=== PATIENT | male | born 1945 | race Caucasian/White ===

== ENCOUNTER 2017-04-01 06:59 | Inpatient (IN) | payer OTHER ==
[2017-03-31 19:00] VITALS: BP 146/70; PULSE 69; TEMP 97.4; O2SAT 93
[~2017-04-01] VITALS: Ht 177.8 cm; Wt 103.0 kg
[2017-04-01] VITALS (11 sets, daily range): BP systolic 117–146; BP diastolic 58–70; PULSE 60–73; RESP 17; TEMP 97.4–98.4; O2SAT 93–96
[2017-04-01] MEDS ORDERED: HEPARIN-NS/PF INJ 500 ML ONE (07:12)
[2017-04-01] MEDS ORDERED: ceFAZolin 2 GM PREMIX 50 ML ONE (07:12)
[2017-04-01] MEDS ORDERED: PROTAMINE SULFATE 50 MG/5 ML VIAL ONE (07:12)
[2017-04-01] MEDS ORDERED: HEPARIN SODIUM - IV 10,000 UNITS/10 ML VIAL ONE ×2 (07:12→09:54)
[2017-04-01] MEDS ORDERED: POVIDONE IODINE 5% (ANTISEPSIS KIT) 4 APPLICATIONS EACH NARE PRN (07:45)
[2017-04-01] MEDS ORDERED: SODIUM CHLORID 0.9% 500 ML IV PRN (07:45)
[2017-04-01] MEDS ORDERED: INSULIN HUMAN REGULAR 1,000 UNITS/10 ML VIAL SQ PRN (07:45)
[2017-04-01] MEDS ORDERED: LACTATED RINGER'S 1000 ML IV PRN (07:45)
[2017-04-01] MEDS ORDERED: CHLORHEXIDINE GLUCONATE 2 % 1 PACK (2 CLOTHS) TOPICAL PRN (07:45)
[2017-04-01] MEDS ORDERED: METOPROLOL TARTRATE 25 MG TAB PO PRN (07:45)
[2017-04-01] MEDS ORDERED: PRAV10TA PO (07:54)
[2017-04-01] MEDS ORDERED: TEMA15CA PO (07:54)
[2017-04-01] MEDS ORDERED: LISI10TA3 PO (07:54)
[2017-04-01] MEDS ORDERED: HYDR12.57 PO (07:54)
[2017-04-01] MEDS ORDERED: ASPI-183 PO (07:54)
[2017-04-01] MEDS ORDERED: METF500T PO (07:54)
[2017-04-01] MEDS ORDERED: METF1000 PO (07:54)
[2017-04-01] MEDS ORDERED: GLIP5TAB8 PO (07:55)
[2017-04-01] MEDS ORDERED: ACETAMINOPHEN 1000 MG/100 ML 100 ML IV ONE (08:01)
[2017-04-01] MEDS ORDERED: FAMOTIDINE 20 MG/2 ML VIAL ONE (08:01)
[2017-04-01] MEDS ORDERED: MIDAZOLAM HCL 2 MG/2 ML VIAL ONE (08:01)
--- NOTE | 2017-04-01 08:39 | PD.VS.PN ---
Pre-operative Note Pre-operative diagnosis: AAA Planned procedure: EVAR Interval History: Pt has been feeling well - no CP abdominal pain or changes in health that would preclude OR Labs: Hct 40 plt 251 INR 0.9 cr 1.0 Blood: T&S Imaging: CTA reviewed Orders: NPO Kefzol 2g IV OCTOR Post-operative destination: PACU, CPCU Operative site marked: No (bilateral) Consent: Informed consent has been obtained from Clarence Delatorre Jr. I have explained the procedure in detail and discussed the risks, benefits, and potential complications. All questions have been answered. Patient contact information: [phone] Marin Warren MD Apr 01, 2017 08:38
[2017-04-01 08:44] LABS: BACTERIA, URINE OCC /hpf; BLOOD, URINE NEG (NEG); COMMENT (UR) CULTURE INDICATED; CULTURE IF INDICATED CULTURE INDICATED; GLUCOSE,URINE 150 mg/dL (NEG); KETONE, URINE NEG (NEG); MUCUS URINE FEW /lpf (OCC); NITRITE,URINE NEG (NEG); SQUAMOUS EPITHELIAL CELL URINE 3 /hpf (0-5); URINE COLOR YELLOW (YELLW/STRAW)
[2017-04-01] MEDS ORDERED: IOHEXOL 300 MG/ML 100 ML BTL (for Rad CT) IVCONTRAST ONE (09:27)
--- NOTE | 2017-04-01 10:34 | HHI.PR ---
Immediate Post Op Note Procedure Date: Apr 01, 2017 Pre Op Diagnosis: AAA Post Op Diagnosis: AAA Surgeon: Marin Warren Firebrick And Refractory Tile Repairer(s): Kristal Franks Procedure: EVAR w/ 2 docking limbs B Perclose Findings: successful exclusion of AAA + Doppler signals Complications: none Specimen(s) removed: none Estimated blood loss: 75mL Anesthesia: General Drains: None Fluids: 1500mL IVF Urinary Output (mLs): 400 Patient to: PACU Patient Condition: Good Implant/Devices: SEE IMPLANT LOG (if applicable) Date/Time of Procedure: SEE SURGICAL CARE RECORD Marin Warren MD Apr 01, 2017 10:34
[2017-04-01] MEDS ORDERED: LACTULOSE SYRUP 20 GM/30 ML CUP PO PRN (10:45)
[2017-04-01] MEDS ORDERED: BISACODYL 10 MG SUPP RECTAL PRN (10:45)
[2017-04-01] MEDS ORDERED: SENNOSIDES 8.6 MG TAB PO PRN (10:45)
[2017-04-01] MEDS ORDERED: TEMAZEPAM 15 MG CAP PO PRN (10:45)
[2017-04-01] MEDS ORDERED: HYDROmorphone HCL 2 MG TAB PO PRN (10:45)
[2017-04-01] MEDS ORDERED: GLUCAGON 1 MG/ML VIAL OTHER PRN (10:45)
[2017-04-01] MEDS ORDERED: MAGNESIUM HYDROXIDE SUSP 30 ML CUP PO PRN (10:45)
[2017-04-01] MEDS ORDERED: DEXTROSE 50% IN WATER 50 ML VIAL(D50) IV PUSH PRN (10:45)
[2017-04-01] MEDS ORDERED: DO NOT ADM ANY ANTICOAGULANT DRUGS PRN (11:05)
[2017-04-01] MEDS ORDERED: *morphine SULFATE 8 MG/ML PERIprocedure ONLY ONE (11:27)
[2017-04-01] MEDS: INSULIN ASPART SUPPLEMENTAL SCALE SQ SCH ×3 (12:08→20:47)
[2017-04-01] MEDS ORDERED: ATORVASTATIN 40 MG TAB PO SCH (21:00)
[2017-04-01] MEDS ORDERED: FAMOTIDINE 20 MG TAB PO SCH (21:00)
[2017-04-01] MEDS ORDERED: DOCUSATE SODIUM 50 MG/SENNA 8.6 MG TAB PO SCH (21:00)
[2017-04-02] VITALS (12 sets, daily range): BP systolic 115–130; BP diastolic 58–63; PULSE 52–66; RESP 16; TEMP 97.4–98.1; O2SAT 95–97
[2017-04-02 04:55] LABS: HEMATOCRIT 36.9 % (39.0-51.0); MEAN CELL VOLUME 91.2 FL (80.0-100.0); MEAN CORPUSCULAR HEMOGLOBIN 30.7 PG (27.0-34.0); MEAN CORPUSCULAR HGB CONC 33.7 % (32.0-36.0); PLATELET COUNT 216 TH/MM3 (150-450); RED BLOOD COUNT 4.04 MIL/MM3 (4.50-5.90); RED CELL DISTRIBUTION WIDTH 13.2 % (11.6-17.2); REVIEW FLAG FINAL; WHITE BLOOD COUNT 10.1 TH/MM3 (4.0-11.0)
[2017-04-02 05:20] LABS: BICARBONATE 25.8 MEQ/L (21.0-32.0); POTASSIUM 3.9 MEQ/L (3.5-5.1)
[2017-04-02] MEDS: INSULIN ASPART SUPPLEMENTAL SCALE SQ SCH (08:37)
[2017-04-02] MEDS ORDERED: LISINOPRIL 10 MG TAB PO SCH (09:00)
[2017-04-02] MEDS ORDERED: HYDROCHLOROTHIAZIDE 12.5 MG CAP PO SCH (09:00)
[2017-04-02] MEDS ORDERED: ASPIRIN 325 MG TAB PO SCH (09:00)
--- NOTE | 2017-04-02 09:00 | PD.VS.PN ---
Subjective POD #: 1 Procedure(s): EVAR w/ 2 docking limbs B Perclose Subjective/Hospital Course 72/M S/P EVAR POD 1 Pt ambulating w/o complaints Pt denied abdominal/back pain Objective Vitals/I&O Date Time Temp Pulse Resp B/P (MAP) Pulse Ox O2 Delivery O2 Flow Rate FiO2 04/02/17 08:00 66 04/02/17 07:15 97.4 52 16 130/63 (85) 96 04/02/17 07:15 96 Room Air 04/02/17 07:15 59 04/02/17 06:24 60 04/02/17 05:18 57 04/02/17 04:07 53 04/02/17 03:22 53 04/02/17 03:00 98.1 60 115/58 (77) 95 04/02/17 02:07 58 04/02/17 01:02 59 04/02/17 00:40 97.4 63 119/60 (79) 97 04/02/17 00:00 62 04/01/17 23:00 60 04/01/17 22:00 68 04/01/17 21:00 68 04/01/17 20:00 Room Air 04/01/17 20:00 66 04/01/17 19:00 97.4 69 146/70 (95) 93 04/01/17 19:00 68 04/01/17 18:00 73 04/01/17 17:00 70 04/01/17 16:00 63 04/01/17 15:00 68 04/01/17 15:00 98.4 64 17 117/58 (77) 95 04/01/17 14:00 70 04/01/17 13:00 97.8 63 17 125/67 (86) 96 04/01/17 13:00 64 04/01/17 13:00 96 Nasal Cannula 2.00 04/01/17 12:45 97.6 75 16 121/64 (83) 95 Room Air 04/01/17 12:30 72 16 122/68 (86) 94 Room Air 04/01/17 12:15 68 16 124/69 (87) 94 Room Air 04/01/17 12:00 64 15 127/70 (89) 99 Nasal Cannula 3 04/01/17 11:45 66 15 130/72 (91) 98 Nasal Cannula 3 04/01/17 11:30 65 15 133/70 (91) 97 Nasal Cannula 3 04/01/17 11:15 62 15 134/74 (94) 100 Simple Mask 8 04/01/17 11:05 97.8 60 20 143/71 (95) 99 Simple Mask 8 04/02/17 04/02/17 04/02/17 07:00 15:00 23:00 Intake Total 240 ml Output Total 500 ml Balance -260 ml Exam: GENERAL: A&OX3,GCS15,NAD SKIN: Warm and dry/ Bilat groins w/o swelling or hematoma GASTROINTESTINAL: Abdomen soft, non-tender, nondistended. MUSCULOSKELETAL: No cyanosis, or edema. Laboratory Laboratory Tests Test 04/02/17 03:58 White Blood Count 10.1 Red Blood Count 4.04 Hemoglobin 12.4 Hematocrit 36.9 Mean Corpuscular Volume 91.2 Mean Corpuscular Hemoglobin 30.7 Mean Corpuscular Hemoglobin Concent 33.7 Red Cell Distribution Width 13.2 Platelet Count 216 Mean Platelet Volume 9.1 Blood Urea Nitrogen 22 Creatinine 1.42 Random Glucose 297 Calcium Level 8.8 Sodium Level 137 Potassium Level 3.9 Chloride Level 101 Carbon Dioxide Level 25.8 Anion Gap 10 Estimat Glomerular Filtration Rate 49 Date/Time Source Procedure Growth Status 04/01/17 07:50 Urine Clean Catch Urine Culture Pending Received Assessment and Plan Assessment: (1) H/O endovascular stent graft for abdominal aortic aneurysm Plan S/p EVAR- Pt w/o complaints Plan D/C this am Arranged OP F/U Zoey KEBEDE [facility] [phone] Discharge Planning Today Zoey Narayan Apr 02, 2017 09:00
[2017-04-02] MEDS ORDERED: PERC5TAB12 PO (09:03)
--- NOTE | 2017-04-02 09:12 | PD.VS.DC ---
Discharge Summary Admission Date: Apr 01, 2017 at 06:59 Discharge Date: Apr 02, 2017 Admission Diagnosis: (1) AAA (abdominal aortic aneurysm) without rupture (2) H/O endovascular stent graft for abdominal aortic aneurysm Discharge Diagnosis: (1) H/O endovascular stent graft for abdominal aortic aneurysm ICD Codes: Z95.828 - Presence of other vascular implants and grafts Brief History from admission 72/M hx of AAA Pt w/o abdominal/back pain Procedure(s): EVAR w/ 2 docking limbs B Perclose Significant Findings GENERAL: A&OX3,GCS15,NAD SKIN: Warm and dry/ Bilat groins w/o swelling or hematoma GASTROINTESTINAL: Abdomen soft, non-tender, nondistended. MUSCULOSKELETAL: No cyanosis, or edema. Laboratory Tests Test 04/01/17 07:50 04/02/17 03:58 Urine Glucose (UA) 150 mg/dL (NEG) Urine Leukocyte Esterase LARGE (NEG) Urine WBC 10 /hpf (0-5) Urine Bacteria OCC /hpf (NONE) Urine Mucus FEW /lpf (OCC) Red Blood Count 4.04 MIL/MM3 (4.50-5.90) Hemoglobin 12.4 GM/DL (13.0-17.0) Hematocrit 36.9 % (39.0-51.0) Blood Urea Nitrogen 22 MG/DL (7-18) Creatinine 1.42 MG/DL (0.60-1.30) Random Glucose 297 MG/DL (74-106) Estimat Glomerular Filtration Rate 49 ML/MIN (>89) Hospital Course: HX of AAA S/P EVAR POD1 Pt w/o complications Pt denied abdominal/back pain Arranged OP follow up in 4W w/ a surveillance CTA (post EVAR) Allergies Coded Allergies Type Severity Reaction Last Updated Verified No Known Allergies 03/31/17 No 03/31/17 03/31/17 04/01/17 04/01/17 04/02/17 04/02/17 06:00 18:00 06:00 18:00 06:00 18:00 Intake Total 1980 ml 240 ml Output Total 1075 ml 500 ml Balance 905 ml -260 ml Intake Oral 480 ml 240 ml Other 1500 ml Output Urine Total 1000 ml 500 ml Estimated Blood Loss 75 ml Laboratory Tests Test 04/01/17 07:50 04/02/17 03:58 Urine Color YELLOW Urine Turbidity CLEAR Urine pH 5.0 Urine Specific [place] 1.021 Urine Protein TRACE mg/dL Urine Glucose (UA) 150 mg/dL Urine Ketones NEG mg/dL Urine Occult Blood NEG Urine Nitrite NEG Urine Bilirubin NEG Urine Urobilinogen LESS THAN 2.0 MG/DL Urine Leukocyte Esterase LARGE Urine RBC 1 /hpf Urine WBC 10 /hpf Urine Squamous Epithelial Cells 3 /hpf Urine Bacteria OCC /hpf Urine Mucus FEW /lpf Microscopic Urinalysis Comment CULTURE INDICATED White Blood Count 10.1 TH/MM3 Red Blood Count 4.04 MIL/MM3 Hemoglobin 12.4 GM/DL Hematocrit 36.9 % Mean Corpuscular Volume 91.2 FL Mean Corpuscular Hemoglobin 30.7 PG Mean Corpuscular Hemoglobin Concent 33.7 % Red Cell Distribution Width 13.2 % Platelet Count 216 TH/MM3 Mean Platelet Volume 9.1 FL Blood Urea Nitrogen 22 MG/DL Creatinine 1.42 MG/DL Random Glucose 297 MG/DL Calcium Level 8.8 MG/DL Sodium Level 137 MEQ/L Potassium Level 3.9 MEQ/L Chloride Level 101 MEQ/L Carbon Dioxide Level 25.8 MEQ/L Anion Gap 10 MEQ/L Estimat Glomerular Filtration Rate 49 ML/MIN Orders Procedure Category Date Status Time Protamine Sulfate Inj MED 04/01/17 Complete (Protamine Sulfate 07:12 Heparin Inj (Heparin MED 04/01/17 Complete Inj) 07:12 Heparin-Ns/Pf Inj MED 04/01/17 Complete (Heparin-Ns/Pf Inj) 07:12 Cefazolin 2 Gm Premix MED 04/01/17 Complete (Ancef 2 Gm Premix 07:12 Urinalysis - C+S If LAB 04/01/17 Complete Indicated 07:32 Specimen To Be MIGUELINA 04/01/17 In Process Collected 07:32 Type And Screen BBK 04/01/17 Complete 07:32 Lactated Ringer's MED 04/01/17 In Process 1000 Ml Inj (Lr 1000 M 07:45 Sodium Chlorid 0.9% MED 04/01/17 In Process 500 Ml Inj (Ns 500 M 07:45 Metoprolol Tartrate MED 04/01/17 In Process (Lopressor) 07:45 Povidone Iod 5% MED 04/01/17 In Process Antisepsis Kit 07:45 Chlorhexidine 2% MED 04/01/17 In Process Cloth (Chlorhexidine 07:45 Insulin Human Regular MED 04/01/17 In Process Inj (Novolin R Inj 07:45 Midazolam Inj (Versed MED 04/01/17 Complete Inj) 08:01 Acetaminophen 1000 MED 04/01/17 Complete Mg/100 Ml (Ofirmev 10 08:01 Famotidine Inj MED 04/01/17 Complete (Pepcid Inj) 08:01 Endovascular Cath CATH 04/01/17 Logged Urine Culture ELIAS 04/01/17 In Process 07:50 Heparin Inj (Heparin MED 04/01/17 Complete Inj) 09:54 Admit To Inpatient ADMITTING 04/01/17 Transmitted Code Status CODE 04/01/17 Transmitted 10:34 Vital Signs (Adult) MIGUELINA 04/01/17 Complete 10:34 Conference Planner / MIGUELINA 04/01/17 In Process Telemetry 10:34 Activity Oob Ad Sushila MIGUELINA 04/01/17 In Process 18:00 Activity Bed Rest MIGUELINA 04/01/17 In Process 10:34 Notify Parameters MIGUELINA 04/01/17 In Process 10:34 Precautions MIGUELINA 04/01/17 In Process 10:34 Diet Heart Healthy DIET 04/01/17 Transmitted Lunch Basic Metabolic Panel LAB 04/02/17 Complete (Bmp) 06:00 Cbc No Diff, Includes LAB 04/02/17 Complete Plts 06:00 Aspirin (Aspirin) MED 04/02/17 In Process 09:00 Famotidine (Pepcid) MED 04/01/17 In Process 21:00 Atorvastatin (Lipitor) MED 04/01/17 In Process 21:00 Oxycodone (Roxicodone) MED 04/01/17 In Process 10:45 Hydromorphone MED 04/01/17 In Process (Dilaudid) 10:45 Scd Bilateral/Knee MIGUELINA 04/01/17 In Process High 10:34 Docusate Sodium-Senna MED 04/01/17 In Process (Brandie-Colace) 21:00 Magnesium Hydroxide MED 04/01/17 In Process Liq (Milk Of Magnesi 10:45 Sennosides (Senokot) MED 04/01/17 In Process 10:45 Bisacodyl Supp MED 04/01/17 In Process (Dulcolax Supp) 10:45 Lactulose Liq MED 04/01/17 In Process (Lactulose Liq) 10:45 Inpatient ADMITTING 04/01/17 Transmitted Certification Hydrochlorothiazide MED 04/02/17 In Process (Microzide) 09:00 Lisinopril (Prinivil) MED 04/02/17 In Process 09:00 Temazepam (Restoril) MED 04/01/17 In Process 10:45 Remove Urinary MIGUELINA 04/01/17 In Process Catheter 18:00 Blood Glucose Goal MIGUELINA 04/01/17 In Process (Criteria) 10:36 Hypoglycemia 70 Mg/Dl MIGUELINA 04/01/17 In Process Or < 10:[address]: Other MIGUELINA 04/01/17 In Process 10:36 Dextrose 50% In Gabriella MED 04/01/17 In Process (Vial) Inj (D50w (Vi 10:45 Glucagon Inj MED 04/01/17 In Process (Glucagon Inj) 10:45 Insulin Aspart MED 04/01/17 In Process Supplemtl Scale 12:00 Iohexol 300 Inj (Rad MED 04/01/[address]) (Omnipaque 300 09:27 *Morphine Inj MED 04/01/17 Complete (*Morphine Inj 11:27 [facility] MED 04/01/17 In Process Information 11:05 Am Admit Pre Op Care [facility] 04/01/17 Complete Enoxaparin Inj MED 04/02/17 In Process (Lovenox Inj) 10:00 Class Iv Pacu Ea 30 [facility] 04/01/17 Complete MIN General/Pacu [facility] 04/01/17 Complete Post Anesthesia Oxygen [facility] 04/01/17 Complete Attending Discharge DISCHARGE 04/02/17 Transmitted Order 09:03 Vital Signs Date Time Temp Pulse Resp B/P (MAP) Pulse Ox O2 Delivery O2 Flow Rate FiO2 04/02/17 08:00 66 04/02/17 07:15 97.4 52 16 130/63 (85) 96 04/02/17 07:15 96 Room Air 04/02/17 07:15 59 04/02/17 06:24 60 04/02/17 05:18 57 04/02/17 04:07 53 04/02/17 03:22 53 04/02/17 03:00 98.1 60 115/58 (77) 95 04/02/17 02:07 58 04/02/17 01:02 59 04/02/17 00:40 97.4 63 119/60 (79) 97 04/02/17 00:00 62 04/01/17 23:00 60 04/01/17 22:00 68 04/01/17 21:00 68 04/01/17 20:00 Room Air 04/01/17 20:00 66 04/01/17 19:00 97.4 69 146/70 (95) 93 04/01/17 19:00 68 04/01/17 18:00 73 04/01/17 17:00 70 04/01/17 16:00 63 04/01/17 15:00 68 04/01/17 15:00 98.4 64 17 117/58 (77) 95 04/01/17 14:00 70 04/01/17 13:00 97.8 63 17 125/67 (86) 96 04/01/17 13:00 64 04/01/17 13:00 96 Nasal Cannula 2.00 04/01/17 12:45 97.6 75 16 121/64 (83) 95 Room Air 04/01/17 12:30 72 16 122/68 (86) 94 Room Air 04/01/17 12:15 68 16 124/69 (87) 94 Room Air 04/01/17 12:00 64 15 127/70 (89) 99 Nasal Cannula 3 04/01/17 11:45 66 15 130/72 (91) 98 Nasal Cannula 3 04/01/17 11:30 65 15 133/70 (91) 97 Nasal Cannula 3 04/01/17 11:15 62 15 134/74 (94) 100 Simple Mask 8 04/01/17 11:05 97.8 60 20 143/71 (95) 99 Simple Mask 8 04/01/17 07:45 98.0 63 18 142/73 (96) 98 03/31/17 19:00 97.4 69 146/70 (95) 93 Discharge Condition: Good Discharge Disposition: Discharge Home Discharge Instructions: Activities as tolerated May shower No tub baths or swimming for 1W You were RX a narcotic pain medication- Take with an OTC stool softener as this medication may cause constipation NO driving while taking your RX pain medication as it may cause dizziness Recommend a daily walking regimen Continue w/ a diabetic diet Follow up in our out pt clinic in 4W with a surveillance CTA -Post EVAR Any questions or concerns: Call [facility] at [facility] [phone] Zoey Narayan Apr 02, 2017 09:12
--- NOTE | 2017-04-02 09:54 | MP ---
cc: TY WARREN MD DATE OF SURGERY: 04/01/2017 PREOPERATIVE DIAGNOSIS Abdominal aortic aneurysm. POSTOPERATIVE DIAGNOSIS Abdominal aortic aneurysm. PROCEDURE 1. Endovascular repair of abdominal aortic aneurysm using bifurcated device and two docking limbs. 2. Right external iliac artery angioplasty. 3. Bilateral common femoral artery Perclose. ATTENDING SURGEON Ty Warren. CRIME SCENE INVESTIGATOR SURGEON Kristal Franks. ANESTHESIA General. INDICATION Mr. Delatorre is a 72-year-old gentleman with a 5.4 cm abdominal aortic aneurysm. He is taken to the operating room for surgical repair. DESCRIPTION OF PROCEDURE Informed consent was obtained from the patient. He was taken to the operating room, placed supine on the operating table. An appropriate timeout was taken to ensure the patient's identity, operative site and planned procedure. The administration of two grams of Ancef was initiated prior to skin incision and will be discontinued after a single preoperative dose. Everyone in the room agreed with the timeout and we proceeded. He was prepped from his nipples to his knees. A 21-gauge micropuncture needle was used to access both common femoral arteries. This was exchanged using Seldinger technique for a micropuncture sheath through which a 0.035 Storq wire was introduced and the micropuncture sheath was exchanged for a 5-Gibraltarian sheath which was used to dilate the skin, subcutaneous tract and arteriotomy. Two Perclose ProGlide sutures were inserted and tagged. These will be used later. An 8 Gibraltarian 10 cm sheath was placed in the right and an 8 Gibraltarian 25 cm sheath was placed in the left. The patient was then systemically heparinized and throughout the remainder of the case the ACT was kept greater than 250. Over the Storq wire through the 8 Gibraltarian sheath on the right an 8 x 40 balloon was used to angioplasty the right external iliac artery and the completion angiogram showed excellent result without any recoil extravasation or flow-limiting dissection. The Storq wire was advanced up to the proximal descending thoracic aorta. Over the left-hand Storq wire a marker Flush catheter was placed and over the right-hand Storq wire a vertebral catheter was placed and the Storq was exchanged for a single curved Lunderquist wire. The vertebral catheter was removed. The 8 Gibraltarian sheath was removed. Matthew dilators were used to dilate the skin and subcutaneous tract and arteriotomy and the main device was placed which was a Cook Zenith 30 x 96. Interval angiography was performed so the proximal aspect of the fabric was immediately caudal to the lower renal artery and the device was deployed down to the contralateral gate. The top cap was deployed thereby exposing the suprarenal stent. A Roadrunner wire was placed through the marker catheter on the left and the marker catheter was exchanged for a vertebral catheter. Using the Roadrunner and vertebral we were able to navigate into the contralateral gate and an angiogram confirmed that we were indeed in the contralateral gate. A second Lunderquist wire was then placed up to the left-hand side and a marker catheter was placed which allowed us to locate the left hypogastric artery. The contralateral limb which was a Zenith Spiral-Z 13 x 90 was then introduced and with sufficient overlap it was deployed. The remainder of the main device was deployed. The top cap was recaptured. A marker catheter was then placed which located the right hypogastric artery and the ipsilateral limb was then inserted which was a Zenith 13 x 74 and deployed without difficulty. A coated balloon was used to balloon the proximal and distal ends as well as the junctions of the stents and a completion angiogram showed excellent result, no recoil extravasation. There was good opacification of both renals, no type I or III endoleak and good opacification of both hypogastric arteries. The wire, catheter and sheaths were removed and the Perclose were tied down. Hemostasis was achieved in the groins. There were Doppler signals in the feet. The heparin was reversed with protamine. Manual pressure was held on the groins and the groin skin was closed with 4-0 Monocryl suture. The sponge and needle counts were correct at the end of the case. I was present and scrubbed for the entire procedure. MD ABBI Kennedy/ALEYDA /4:40 AM /9:02 AM
[2017-04-02] MEDS ORDERED: ENOXAPARIN SODIUM 40 MG/0.4 ML SYRINGE SQ SCH (10:00)
== END 2017-04-02 10:00 | disposition home or self-care (01) | DRG 269 ==
LOC: HSDI 06:59 → HCPC 12:50
PROVIDERS: ADMIT Surgery; ATTEND Surgery
PROC: 04V03EZ Restriction of Abdominal Aorta with Branched or Fenestrated Intraluminal Device, One or Two Arteries, Percutaneous Approach (ICD-10-PCS; principal; 2017-04-01 09:00)
PROC: 047H3ZZ Dilation of Right External Iliac Artery, Percutaneous Approach (ICD-10-PCS; 2017-04-01 09:00)
DX: I71.4 Abdominal aortic aneurysm, without rupture (principal); E11.9 Type 2 diabetes mellitus without complications; I10 Essential (primary) hypertension; E78.5 Hyperlipidemia, unspecified; H91.90 Unspecified hearing loss, unspecified ear; F17.210 Nicotine dependence, cigarettes, uncomplicated; F32.9 Major depressive disorder, single episode, unspecified; Z79.84 Long term (current) use of oral hypoglycemic drugs
CPT/HCPCS: 80048; 81001; 82948; 85027; 86850; 86900; 86901; 87086; J0131; J0690; J1644; J1815; J2250; J2270; J2720; J7120; Q9967

== ENCOUNTER 2017-06-17 11:56 | Day surgery (SDC) | payer OTHER ==
[~2017-06-17] VITALS: Ht 177.8 cm; Wt 97.0 kg
[~2017-06-17 11:56] MED LIST: ASPI-183 PO; GLIP5TAB8 PO; HYDR12.57 PO; LISI10TA3 PO; METF1000 PO; PERC5TAB12 PO; PRAV10TA PO; TEMA15CA PO
[2017-06-17] MEDS ORDERED: IOHEXOL 350 MG/ML 50 ML BTL (for Cath Lab) OTHER ONE (11:57)
[2017-06-17 12:15] VITALS: BP 129/76; PULSE 50; RESP 18; O2SAT 96
[2017-06-17] MEDS ORDERED: SODIUM BICARBONATE 100 MEQ in D5W 1000 ML IV SCH (12:30)
--- NOTE | 2017-06-17 12:58 | HHI.HP ---
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 No symptoms. Because of threat of limb occlusion, offered angio/stent Past/Family/Social History Past Medical History DM HTN XOL AAA Past Surgical History EVAR ankle surgery Social History US Family History NC Home Medications Reported Medications Glipizide (Glipizide) 5 Mg Tab, 5 MG PO BIDAC for Blood Sugar Management, #60 TAB 0 Refills Take 30 minutes before a meal 04/01/17 Aspirin (Aspirin) 325 Mg Tab, 325 MG PO DAILY, #30 TAB 0 Refills 04/01/17 Metformin (Metformin) 1,000 Mg Tab, 1000 MG PO BIDPC for Blood Sugar Management , #60 TAB 0 Refills 04/01/17 Temazepam (Temazepam) 15 Mg Cap, 15 MG PO HS Y for INSOMNIA, #30 CAP 0 Refills 04/01/17 Pravastatin (Pravastatin) 10 Mg Tab, 10 MG PO HS for Cholesterol Management, # 30 TAB 0 Refills 04/01/17 Hydrochlorothiazide (Hydrochlorothiazide) 12.5 Mg Cap, 12.5 MG PO DAILY, #30 CAP 0 Refills 04/01/17 Lisinopril (Lisinopril) 10 Mg Tab, 10 MG PO DAILY, #30 TAB 0 Refills 04/01/17 Coded Allergies: No Known Allergies (Unverified , 03/31/17) Review of Systems Constitutional: DENIES: Fever Cardiovascular: DENIES: Chest pain Physical Exam Neuro: alert, oriented, no distress HEENT: NC/AT Neck: no JVD Heart: reg rate, no M Lungs: clear B pending Caprini VTE Risk Assessment Caprini VTE Risk Assessment: No/Low Risk (score <= 1) Caprini Risk Assessment Model Point Value = 1 Point Value = 2 Point Value = 3 Point Value = 5 Age 41-60 Minor surgery BMI > 25 kg/m2 Swollen legs Varicose veins or History of unexplained or recurrent spontaneous Oral contraceptives or hormone replacement Sepsis (< 1 month) Serious lung disease, including pneumonia (< 1 month) Abnormal pulmonary function Acute myocardial infarction Congestive heart failure (< 1 month) History of inflammatory bowel disease Medical patient at bed rest Age 61-74 Arthroscopic surgery Major open surgery (> 45 min) Laparoscopic surgery (> 45 min) Malignancy Confined to bed (> 72 hours) Immobilizing plaster cast Central venous access Age >= 75 History of VTE Family history of VTE Factor V Leiden Prothrombin [id number] Lupus anticoagulant Anticardiolipin antibodies Elevated serum homocysteine Heparin-induced thrombocytopenia Other congenital or acquired thrombophilia Stroke (< 1 month) Elective arthroplasty Hip, pelvis, or leg fracture Acute spinal cord injury (< 1 month) Prophylaxis Regimen Total Risk Factor Score Risk Level Prophylaxis Regimen 0-1 Low Early ambulation 2 Moderate Order ONE of the following: *Sequential Compression Device (SCD) *Heparin 5000 units SQ BID 3-4 Higher Order ONE of the following medications: *Heparin 5000 units SQ TID *Enoxaparin/Lovenox 40 mg SQ daily (WT < 150 kg, CrCl > 30 mL/min) *Enoxaparin/Lovenox 30 mg SQ daily (WT < 150 kg, CrCl > 10-29 mL/min) *Enoxaparin/Lovenox 30 mg SQ BID (WT < 150 kg, CrCl > 30 mL/min) AND/OR *Sequential Compression Device (SCD) 5 or more Highest Order ONE of the following medications: *Heparin 5000 units SQ TID (Preferred with Epidurals) *Enoxaparin/Lovenox 40 mg SQ daily (WT < 150 kg, CrCl > 30 mL/min) *Enoxaparin/Lovenox 30 mg SQ daily (WT < 150 kg, CrCl > 10-29 mL/min) *Enoxaparin/Lovenox 30 mg SQ BID (WT < 150 kg, CrCl > 30 mL/min) AND *Sequential Compression Device (SCD) Assessment and Plan Plan R iliac angio/stent DOCU post-op Discharge Planning today [phone] Marin Warren MD Jun 17, 2017 12:58
[2017-06-17 13:02] LABS: AUTOMATED NEUTROPHIL # 5.8 TH/MM3 (1.8-7.7); BASOPHIL # 0.1 TH/MM3 (0-0.2); EOSINOPHIL # 0.2 TH/MM3 (0-0.4); EOSINOPHIL % 2.2 % (0.0-4.0); HEMATOCRIT 39.6 % (39.0-51.0); HEMOGLOBIN 13.9 GM/DL (13.0-17.0); LYMPHOCYTE # 2.4 TH/MM3 (1.0-4.8); MEAN CELL VOLUME 88.5 FL (80.0-100.0); MEAN CORPUSCULAR HEMOGLOBIN 31.2 PG (27.0-34.0); MEAN CORPUSCULAR HGB CONC 35.2 % (32.0-36.0); MEAN PLATELET VOLUME 8.9 FL (7.0-11.0); MONO % 7.5 % (0.0-8.0); MONOCYTE # 0.7 TH/MM3 (0-0.9); NEUT % 63.3 % (16.0-70.0); PLATELET COUNT 255 TH/MM3 (150-450); RED BLOOD COUNT 4.47 MIL/MM3 (4.50-5.90); RED CELL DISTRIBUTION WIDTH 13.8 % (11.6-17.2); WHITE BLOOD COUNT 9.1 TH/MM3 (4.0-11.0)
[2017-06-17 13:13] LABS: PROTHROMBIN TIME - PATIENT 10.3 SEC (9.8-11.6)
[2017-06-17] MEDS ORDERED: HEPARIN SODIUM - IV 10,000 UNITS/10 ML VIAL ONE (13:18)
[2017-06-17] MEDS ORDERED: HEPARIN-NS/PF FLUSH BAG 1,000 ML IV FLUSH ONE (13:18)
[2017-06-17] MEDS ORDERED: MIDAZOLAM HCL 5 MG/5 ML VIAL ONE (13:18)
[2017-06-17 13:21] LABS: BICARBONATE 26.5 MEQ/L (21.0-32.0); CALCIUM 9.4 MG/DL (8.5-10.1); CREATININE 1.03 MG/DL (0.60-1.30)
--- NOTE | 2017-06-17 13:53 | HHI.PR ---
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 U/S guided access to R BUTTON MAKER 2. Aortogram 3. R EIA stent (10x60) 4. R BUTTON MAKER Angioseal Findings: stenosis R EIA, successful COMMUNITY EDUCATION SPECIALIST/stent Complications: none Specimen(s) removed: none Estimated blood loss: 10mL Anesthesia: MAC Drains: None Patient to: Other (DOCU) Patient Condition: Good Implant/Devices: SEE IMPLANT LOG (if applicable) Date/Time of Procedure: SEE SURGICAL CARE RECORD Marin Warren MD Jun 17, 2017 13:52
--- NOTE | 2017-06-17 13:55 | CATHPROC ---
[employer] HIS Report Study Information Study Number Admission Scheduled Start Study Start [id number] Jun 17 2017 11:56AM 06/17/2017 Jun 17 2017 1:17PM [place] Service Cath Endovascular Study Admit Source Facility Department Other [facility] - Paint Line Production Supervisor Physician and Clinical Staff Initial MD Warren, Marin [employer] Worker Zuri Cobian,ALEXANDER Recorder Luis MUNOZ, Ronal Allen, Lam,RT(R) X-Ray Josep Romo,RT(R) Procedures Performed Procedure Location (Site) Vessel Name Periph stent Iliac R. Ext. (R5) [place] [facility]. PREVOCATIONAL/REHABILITATION COUNSELOR Iliac R. Ext. (R5) [place] [employer]. Wire insertion Fem Art (right) Femoral Art Equipment Time Electronic Assembler Description Size Mfg Part Number Used/Scraped [id number] 13:31 ANGIO-DYNAMICS OMNI FLUSH 65CM CATHETER FR 4 Used *[id number] INTRODUCER SET, 13:31 [employer]. FR 5 [id number] *[id number] Used MICROPUNCTURE, STIFFENED 13:38 CORDIS/ YAYA SHEATH, FR6 BRITE TIP 11CM FR 6 11CM [id number] Used WIRE, STORQ STANDARD MOD J [id number] 13:38 CORDIS/ YAYA 300CM Used 300CM *[id number] 13:47 DAIG/[employer] [facility] MEDICAL ANGIOSEAL, FR6 VIP FR 6 Used *[id number] ENDOVASCULAR [id number] 13:41 STENT, PROTEGE 10 X 60 120CM 10 X 60 Used Notehall 120 BALLOON, ADMIRAL EXTREME 9 X [id number] 13:45 [employer] 80CM Used 40 80CM *[id number] 13:31 Appboy PACK, CCL CUSTOM * Used *[id number] 13:31 [employer] MEDICAL PRESSURE TUBING 48" 48" [id number] Used [id number] 13:31 NAMIC TUBING, HIGH PRESSURE 20" 20" Used *[id number] TUBING, PRESSURE INJECTION [id number] 13:31 NAMIC PACER 72" Used 72" *[id number] 13:31 NYCOMED OMNIPAQUE, 300 MG, 150ML 150ML [id number] Used 13:31 NYCOMED OMNIPAQUE, 300 MG, 50ML 50ML [id number] Used [id number] 13:31 PEDERSEN MEDICAL BLANKET,WARM AIR CCL * Used *[id number] 13:31 TERUMO MEDICAL SHEATH, FR4 TERUMO (10CM) FR 4 Used *[id number] WIRE, ANGLED GLIDE .035 [id number] 13:31 TERUMO MEDICAL/YAYA 260CM Used 260CM *[id number] Equipment Model, Serial, Lot Number and Expiration Data Description Model Number Serial Number Lot Number Expiration Date ANGIOSEAL, FR6 MARY [id number] 02-16-2018 STENT, PROTEGE 10 X 60 120CM [id number] 03-27-2019 History: Allergies Allergy Reaction NKDA Labs Hgb (g/dl) Hct (%) WBC (l/cumm) 11.60-17.00 35.00-51.00 4.00-11.00 13.9 39.6 9.1 Glucose (mg/dl) BUN (mg/dl) Creatinine (mg/dl) BUN:Creatinine (1:x) 74.00-106.00 7.00-18.00 0.50-1.30 10.00-20.00 123 21 1.0 21 Na (meq/l) K (meq/l) 136.00-145.00 3.50-5.10 140 3.7 INR (PTT:PT) 0.90-1.10 1 CPK-MB (ng/ML) 0.50-3.60 Not Drawn Medication Medication Total Dose (Bolus/Oral) Medication Total Dosage/Unit 1% XYLOCAINE 20 mL FENTANYL 50 mcg HEPARIN 3000 units VERSED 3 mg Medications (Bolus/Oral) Medication Time Given Dosage/Unit Administered By Reason VERSED 06/17/2017 1:29:20 PM 2 mg Zuri Cobian For sedation 2 mg VERSED given in lab by Zuri Cobian, ALEXANDER via Peripheral IV. Ordered by Marin Warren. Reason: For sedation. FENTANYL 06/17/2017 1:30:30 PM 50 mcg Zuri Cobian 50 mcg FENTANYL given in lab by Zuri Cobian, ALEXANDER via Peripheral IV. Ordered by Marin Warren. 1% XYLOCAINE 06/17/2017 1:35:24 PM 20 mL Marin Warren 20 mL 1% XYLOCAINE given in lab by Marin Warren in Right Groin via Subcutaneous. Ordered by Marin Warren. VERSED 06/17/2017 1:35:51 PM 1 mg Zuri Cobian 1 mg VERSED given in lab by Zuri Cobian RN via Peripheral IV. Ordered by Marin Warren. HEPARIN 06/17/2017 1:38:38 PM 3000 units Zuri Cobian 3000 units HEPARIN given in lab by Zuri Cobian RN via Peripheral IV. Ordered by Marin Warren. Chronological Log Time Study Chronological Log 13:20:14 Patient arrived via Bed. 13:20:17 Patient Name, D.O.B, / Armband Verified By R.N. 13:20:19 Consent signed by the physician and the patient and verified by the Paint Line Production Supervisor staff. 13:20:21 Pre-op and post- op instructions given; patient acknowledges understanding of instructions . 13:20:34 MD arrived. 13:23:16 Right groin prepped with 2% chlorhexidine, and draped after a 3 min. waiting time. 13:24:36 Presedation assessment performed by Paint Line Production Supervisor RN. Vitals capture started with the following parameters, Patient=Adult, Interval=5 min, Initial P niznkov=844 mmHg, 13:24:51 Deflation Rate=5 mmHg, Cuff placed on Right Ankle 13:24:57 Patient has been NPO for More than 6Hrs. 13:25:31 HR=62 bpm, IWVD=175/78 mmhg, SpO2=94.0 %, Resp=12 B/min, Kennedy=2 13:29:20 2 mg VERSED given in lab by Zuri Cobian RN via Peripheral IV. Ordered by Marin Warren . Reason: For sedation. 13:30:28 HR=53 bpm, CWRY=690/83 mmhg, SpO2=96.0 %, Resp=21 B/min, Kennedy=2 13:30:30 50 mcg FENTANYL given in lab by Zuri Cobian, ALEXANDER via Peripheral IV. Ordered by Padmini Warren 13:31:59 Skin Breakdown- none reported 13:32:40 A # 20 IV was noted in the Forearm (left). Grade = 0 13:33:49 Immediate Presedation assesment performed by physician. Time Out. Correct patient, correct procedure, correct physician, power injector loaded, or not loaded with contrast with 13:35:01 surgical team present. Time Out Concurred by MD and individual staff in procedure. 13:35:20 Case Start 13:35:24 20 mL 1% XYLOCAINE given in lab by Marin Warren in Right Groin via Subcutaneous. Ordered by Marin Warren. 13:35:34 HR=55 bpm, BRFH=014/77 mmhg, SpO2=93.0 %, Resp=18 B/min, Kennedy=2 13:35:51 1 mg VERSED given in lab by Zuri Cobian, RN via Peripheral IV. Ordered by Marin Warren . 13:36:12 Access site was Right Femoral Artery. 13:37:24 A WIRE, STORQ STANDARD MOD J 300CM 300CM was inserted via Fem Art (right). A SHEATH, FR6 BRITE TIP 11CM FR 6 11CM was exchanged in the Fem Art (right). This was necessary in order to 13:38:16 accomodate a larger catheter. 13:38:38 3000 units HEPARIN given in lab by Zuri Cobian, ALEXANDER via Peripheral IV. Ordered by Marin Warren. 13:40:15 Through a catheter, The Iliac R. Ext. (R5) was injected with ~CC'S~ cc's of contrast. 13:41:05 HR=60 bpm, JMZM=348/70 mmhg, SpO2=91.0 %, Resp=19 B/min, Kennedy=2 A STENT, PROTEGE 10 X 60 120CM 10 X 60 was advanced through a catheter over a WIRE, STORQ STAND ALTAF MOD J 13:42:50 300CM 300CM. 13:43:21 In the Iliac R. Ext. (R5) a BALLOON, ADMIRAL EXTREME 9 X 40 80CM 80CM was inflated to 8 rosalia s for 10 seconds. 13:43:34 A implantable was deployed in the Iliac R. Ext. (R5). A BALLOON, ADMIRAL EXTREME 9 X 40 80CM 80CM was inserted over WIRE, STORQ STANDARD MOD J 300CM 300CM 13:44:42 via the Iliac R. Ext. (R5). 13:45:00 In the Iliac R. Ext. (R5) a BALLOON, ADMIRAL EXTREME 9 X 40 80CM 80CM was inflated to 8 rosalia s for 10 seconds. 13:45:32 HR=51 bpm, HWER=220/71 mmhg, SpO2=92.0 %, Resp=22 B/min, Kennedy=2 13:46:15 In the Iliac R. Ext. (R5) a BALLOON, ADMIRAL EXTREME 9 X 40 80CM 80CM was inflated to 8 rosalia s for 10 seconds. 13:48:53 Case End 13:48:58 ANGIOSEAL, FR6 VIP FR 6 placement in the Fem Art (right) 13:49:19 Sterile dressing applied to site 13:49:21 No case complications noted. 13:51:10 HR=59 bpm, MAZT=867/73 mmhg, SpO2=96.0 %, Resp=18 B/min, Kennedy=2 13:52:22 Vitals capture stopped. 13:52:30 Bedside Report will be given. 13:52:44 Implantable Device card placed in patient's chart. 13:52:47 DOCU called. Spoke to Carmen MUNOZ 13:53:33 Peripheral Vascular Intervention Performed. 13:54:51 Patient moved to [facility] End Study - Contrast Media Used In Study Contrast Total Opened (mL) Total Used (mL) Total Wasted (mL) Omnipaque 50 15 35 End Study - Maximum Contrast Load Max Contrast Load (mL) 485.0 End Study - Radiation Exposure Fluoro Time (minutes) 3.1 End Study - Patient Disposition Complications Transferred To Interventional Outcome No Paint Line Production Supervisor Holding successful
[2017-06-17] MEDS ORDERED: PLAV75TA29 PO (13:59)
[2017-06-17] MEDS ORDERED: CLOPIDOGREL 75 MG TAB PO ONE (14:00)
--- NOTE | 2017-06-18 08:59 | MP ---
cc: Marin Warren MD DATE OF OPERATION: 06/17/2017 PREOPERATIVE DIAGNOSIS: Right iliac stenosis, status post endovascular aneurysm repair. POSTOPERATIVE DIAGNOSIS: Right iliac stenosis, status post endovascular aneurysm repair. PROCEDURE: 1. Aortogram. 2. Right external iliac artery stent with a 10 x 60 stent. 3. Right common femoral artery Angio-Seal. ATTENDING SURGEON: Marin Warren MD ANESTHESIA: Local with sedation. INDICATION: Mr. Delatorre is a gentleman who had an endovascular abdominal aortic aneurysm. Several months ago, on a routine surveillance postoperative CT scanning, it was found he had an external iliac artery stenosis. Although this was completely asymptomatic, because of the risk of graft limb occlusion, he was offered endovascular intervention. DESCRIPTION OF PROCEDURE: Informed consent obtained. Patient was taken to the operating room and placed supine on the operating room table and appropriate timeout was taken to ensure the patient's identity, operative site and planned procedure. Everyone in the room agreed with timeout. We proceeded. His bilateral groins were prepped and draped, and the right groin was anesthetized with 1% lidocaine. Using ultrasonographic guidance, the right common femoral artery was accessed with a 21-gauge Micropuncture needle, and this was exchanged using Seldinger technique for a Micropuncture sheath, through which a 0.035 Storq wire was introduced, and the Micropuncture sheath was exchanged for a 6 Palestinian sheath. Then the iliac angiogram was obtained. This showed there was a high-grade stenosis of the external iliac artery with some proximal dissection. Please note, there was no prior catheter-based imaging available for my review. The patient was systemically heparinized with 3000 units of IV heparin. The external iliac artery abnormality was treated with a 10 x 60 self-expanding stent, which was post-dilated to 9 mm. The completion angiogram showed excellent result without any recoil, extravasation and no further evidence of dissection. Wire, catheter and sheath were removed, and the groin was closed with an Angio-Seal. There were no complications. I was present and scrubbed and performed the entire procedure. INTERPRETATION OF IMAGES: The right common iliac artery with an EVAR stent is widely patent. The external iliac artery is patent, but there is a high-grade stenosis with a component of a dissection proximally. After angioplasty and stenting, there is resolution of this radiographic abnormality. MD BEBE Kennedy , 05:01 AM , 08:57 AM
== END 2017-06-17 16:25 | disposition home or self-care (01) ==
LOC: HDIC 11:56 → HDOC 11:56
PROVIDERS: ATTEND Surgery
DX: I70.201 Unspecified atherosclerosis of native arteries of extremities, right leg (principal); I10 Essential (primary) hypertension; E11.9 Type 2 diabetes mellitus without complications; Z79.84 Long term (current) use of oral hypoglycemic drugs; Z79.82 Long term (current) use of aspirin
CPT/HCPCS: 37221; 75736; 80048; 85025; 85610; C1725; C1760; C1769; C1876; C1893; G0269; J1644; J2250; J3010; Q9967